=== PATIENT | male | born 1955 | race Caucasian/White ===

== ENCOUNTER 2017-02-12 05:10 | Emergency (ER) | payer OTHER, MEDICARE ==
[~2017-02-12] VITALS: Ht 180.3 cm; Wt 104.5 kg
[~2017-02-12 05:10] MED LIST: ADVAIR 500/28 DISKUS IH; ALBUTEROL0.09 MG/A1 IH; ALBUTEROL0.83 MG/ML IH; AMBIEN 10MG10 MG PO; ASPIR-LOW81 MG PO; BACTRIM DS 8001 TAB PO; BACTROBAN 22GM22 GM TP; BENAZEPRIL; BUDEPRION SR150 M1 PO; CARDIZEM CD360 MG PO; CELEBREX 200MG200 MG PO; CEPHALEXIN500 M1 PO; CLOTRIMAZOLE 1%; COUMADIN 5MG5 MG/TAB PO; COZAAR100 MG PO; CRESTOR20 MG PO; DEPAKENE; DIFLUCAN150 MG PO; DIFLUCAN200 MG PO; DOLOPHINE HCL5 MG PO; DOXYCYCLINE 10100 MG PO; FERROUS SU325 MG/TAB PO; FLAGYL500 MG PO; FLONASE NASAL S16 GM NS; FOLIC ACID0.8 MG PO; GABAPENTIN100 M1 PO; HCTZ 25MG TAB25 MG PO; LAMISIL250 MG PO; LISINOPRIL20 MG PO; METHADONE HCL5 MG PO; MINIPRESS 1M1 MG/CAP PO; MIRAPEX; MOTRIN 800800 MG/TAB PO; NEURONTIN600 MG/TAB PO; POLYETHYLENE GL1 PO6 PO; PROAIR HFA0.09 MG/AC IH; PROBIOTIC FORMU1 CAP PO; REQUIP 1MG T1 MG/TAB PO; RT ADVAIR 528 DISKUS IH; RT SPIRIVA18 MCG IH; SINEMET 25/101 UDTAB PO; SINEMET CR 50 M1 TER PO; SINGULAIR 110 MG/TAB PO; SINGULAIR10 MG PO; SPIREVA; TEFLARO 60600 MG/VIA IV; THEOPHYLLINE; TYLENOL 325MG325 MG PO; VITAMIN D32000 I1 PO; VITAMIN D50000 I1 PO; WELLBUTRIN SR150 M1 PO; ZOCOR40 MG PO; ZOLOFT100 MG PO; ZYRTEC5 MG PO; [UNRECOGNIZED DRUG - OTHER]
[2017-02-12 05:13] VITALS: TEMP 98.1
[2017-02-12 05:43] LABS: BASO # 0.1 (0.0-0.2); BASO % 0.7 % (0.0-2.0); EOS # 1.3 (0.0-0.7); EOS % 15.3 % (0-4.0); GRAN # 4.8 (1.4-6.5); GRAN % 57.3 % (42.2-75.2); HEMOGLOBIN 14.6 g/dl (13.5-18.0); LYMPH # 1.7 (1.2-3.4); LYMPH % 19.6 % (20.0-51.0); MEAN CELL VOLUME 87 fl (80.0-100.0); MEAN CORPUSCULAR HEMOGLOBIN 29 pg (27.0-31.0); MEAN CORPUSCULAR HGB CONC 33 g/dl (33.0-37.0); MEAN PLATELET VOLUME 9.9 fl (7.4-10.4); MONO # 0.6 (0.1-0.6); MONO % 6.5 % (1.7-9.3); PLATELET COUNT 203 K/mm3 (130-400); RED BLOOD COUNT 5.08 M/mm3 (4.20-5.60); WHITE BLOOD COUNT 8.4 K/mm3 (4.8-10.8)
[2017-02-12 05:54] LABS: ADJUSTED CALCIUM 8.9 mg/dL (8.4-10.2); ALANINE AMINOTRANSFERASE 29 U/L (21-72); ALBUMIN 4.3 gm/dL (3.5-5.0); ALKALINE PHOSPHATASE 131 U/L (50-136); ANION GAP 9 mmol/L (7-16); BILIRUBIN,TOTAL 0.8 mg/dL (0.0-1.0); BLOOD UREA NITROGEN 18 mg/dL (9-20); CALCIUM 9.1 mg/dL (8.4-10.2); CARBON DIOXIDE 25 mmol/L (22-30); CHLORIDE 104 mmol/L (98-107); GLUCOSE 202 mg/dL (74-106); POTASSIUM 4.2 mmol/L (3.4-5.0); SODIUM 138 mmol/L (137-145)
[2017-02-12 06:11] LABS: TROPONIN-I < 0.012 ng/mL (0.000-0.034)
[2017-02-12 06:32] VITALS: BP 150/77; PULSE 71
== END 2017-02-12 06:33 | disposition home or self-care (01) ==
LOC: COL.ER 05:10
PROVIDERS: Family Medicine
DX: S06.329A Contusion and laceration of left cerebrum with loss of consciousness of unspecified duration, initial encounter (principal); S01.01XA Laceration without foreign body of scalp, initial encounter; I10 Essential (primary) hypertension; G20 Parkinson's disease; G43.909 Migraine, unspecified, not intractable, without status migrainosus; H54.7 Unspecified visual loss; Z79.82 Long term (current) use of aspirin; W18.39XA Other fall on same level, initial encounter